=== PATIENT | female | born 1955 | race Two or more races ===

== ENCOUNTER 2022-10-15 22:17 | Emergency (ER) | payer MEDICAID, OTHER ==
[~2022-10-15] VITALS: Ht 162.6 cm; Wt 90.0 kg
[2022-10-15 23:12] LABS: Basophils # (auto) 0 10 ^3/uL (0-0.2); Basophils % (auto) 0.5 % (0.0-2.0); Eosinophils # (auto) 0.3 10 ^3/uL (0-0.8); Eosinophils % (auto) 4.5 % (0.0-7.0); Hematocrit 32.1 % (36.0-46.0); Hemoglobin 10.5 g/dL (12.2-16.2); Lymphocytes # (auto) 2.8 10 ^3/uL (0.4-5.4); Lymphocytes % (auto) 37.6 % (10.0-50.0); Mean Corpuscular Hemoglobin 29.3 pg (28.0-32.0); Mean Corpuscular Hgb Conc. 32.7 g/dL (32.0-36.0); Mean Corpuscular Volume 89.7 fL (80.0-100.0); Monocytes # (auto) 0.5 10 ^3/uL (0-1.3); Monocytes % (auto) 6.8 % (0.0-12.0); Neutrophils # (auto) 3.7 10 ^3/uL (1.6-8.6); Neutrophils % (auto) 50.6 % (37.0-80.0); Nucleated Red Blood Cells % 0.1 %; Red Blood Cells 3.58 10^6/uL (4.0-5.20); Red Cell Distribution Width 15.1 % (11.8-14.3); White Blood Cell 7.3 10^3/uL (4.4-10.8)
[2022-10-15 23:14] LABS: Albumin 3.1 g/dL (3.4-5.0); Calcium 8.6 mg/dL (8.5-10.1); INR 1.27 (0.9-1.15); Partial Thromboplastin Time 28.2 sec (24.6-33.4); Potassium 4.3 mmol/L (3.5-5.1)
[2022-10-15 23:20] LABS: BUN/Creatinine Ratio 22.2; Bilirubin, Total 0.4 mg/dL (0.2-1.0); Total Protein 7.7 g/dL (6.4-8.2)
[2022-10-16 02:00] VITALS: BP 136/37
== END 2022-10-16 02:27 | disposition left against medical advice (07) ==
LOC: ER 22:17
DX: R07.89 Other chest pain (principal); R20.2 Paresthesia of skin; I25.10 Atherosclerotic heart disease of native coronary artery without angina pectoris
CPT/HCPCS: 36415; 70450; 71045; 80053; 83880; 84484; 85025; 85379; 85610; 85730; 93005; 93970

== ENCOUNTER 2024-06-13 18:25 | Emergency (ER) | payer MEDICAID, OTHER ==
[~2024-06-13] VITALS: Ht 162.6 cm; Wt 89.5 kg
[2024-06-13 18:34] VITALS: BP 162/88
[2024-06-13 19:22] VITALS: PULSE 71
[2024-06-13 19:30] LABS: Basophils # (auto) 0 10 ^3/uL (0-0.2); Basophils % (auto) 0.3 % (0.0-2.0); Eosinophils # (auto) 1.1 10 ^3/uL (0-0.8); Eosinophils % (auto) 11.2 % (0.0-7.0); Hemoglobin 12.5 g/dL (12.2-16.2); Lymphocytes # (auto) 4.1 10 ^3/uL (0.4-5.4); Lymphocytes % (auto) 41.8 % (10.0-50.0); Mean Corpuscular Hemoglobin 30.3 pg (28.0-32.0); Mean Corpuscular Hgb Conc. 33.7 g/dL (32.0-36.0); Mean Corpuscular Volume 89.9 fL (80.0-100.0); Monocytes # (auto) 0.5 10 ^3/uL (0-1.3); Monocytes % (auto) 5.1 % (0.0-12.0); Neutrophils # (auto) 4.1 10 ^3/uL (1.6-8.6); Neutrophils % (auto) 41.6 % (37.0-80.0); Nucleated Red Blood Cells % 0.1 %; Red Blood Cells 4.11 10^6/uL (4.0-5.20); Red Cell Distribution Width 14.1 % (11.8-14.3); White Blood Cell 9.8 10^3/uL (4.4-10.8)
[2024-06-13 19:45] LABS: INR 1.09 (0.9-1.15); Partial Thromboplastin Time 33.2 SEC (24.5-34.5); Prothrombin Time 11.5 sec (9.3-11.8)
[2024-06-13 19:54] LABS: Alanine Aminotransferase 11 U/L (7-40); Albumin 4.4 g/dL (3.2-4.8); Alkaline Phosphatase 117 U/L (46-116); Anion Gap 8 (5-15); Aspartate Aminotransferase 17 U/L (13-40); BUN/Creatinine Ratio 19.2 (10.0-20.0); Blood Urea Nitrogen 32 mg/dL (9-23); Calcium 9.7 mg/dL (8.7-10.4); Carbon Dioxide 27 mmol/L (20-30); Chloride 106 mmol/L (98-107); Glucose 91 mg/dL (74-106); Potassium 3.4 mmol/L (3.5-5.1); Sodium 141 mmol/L (136-145)
[2024-06-13 19:55] LABS: Bilirubin, Total 0.5 mg/dL (0.2-1.0); Total Protein 7.5 g/dL (5.7-8.2)
[2024-06-13] MEDS ORDERED: ENOXAPARIN SOD 100 MG/1 ML SYRINGE SC ONE (20:30)
[2024-06-13] MEDS ORDERED: PIPERACILLIN-TAZOB 3.375GM 100 ML IV ONE (20:30)
[2024-06-13] MEDS ORDERED: methylPREDNISolone SOD SUCC 125 MG/2 ML VL IV ONE (20:30)
[2024-06-13] MEDS ORDERED: ASPirin-EC 325mg tab PO ONE (20:30)
[2024-06-13] MEDS: ALBUTEROL SULF 2.5 MG/0.5ML(0.5%) NEB SOLN NEB ONE (20:58)
[2024-06-13] MEDS: IPRATROPIUM BROM 0.5 MG/2.5ML INH SOL NEB ONE (20:59)
[2024-06-13 21:00] VITALS: RESP 18; O2SAT 98
== END 2024-06-13 21:27 | disposition left against medical advice (07) ==
LOC: ER 18:28
DX: I25.10 Atherosclerotic heart disease of native coronary artery without angina pectoris (principal); G20.A1 Parkinson's disease without dyskinesia, without mention of fluctuations; J44.9 Chronic obstructive pulmonary disease, unspecified; I12.9 Hypertensive chronic kidney disease with stage 1 through stage 4 chronic kidney disease, or unspecified chronic kidney disease; N18.30 Chronic kidney disease, stage 3 unspecified; E78.5 Hyperlipidemia, unspecified; Z98.890 Other specified postprocedural states; Z88.6 Allergy status to analgesic agent; Z88.5 Allergy status to narcotic agent; Z88.8 Allergy status to other drugs, medicaments and biological substances
CPT/HCPCS: 36415; 80053; 84484; 85025; 85610; 85730; 93005; 94640; 99284; J7644